=== PATIENT | male | born 1995 | race Caucasian/White ===

== ENCOUNTER 2023-11-06 00:16 | Emergency (ER) | payer BC ==
[~2023-11-06] VITALS: Ht 182.9 cm; Wt 81.6 kg
[2023-11-06] MEDS ORDERED: ACETAMINOPHEN 500 MG TABLET ONE (01:06)
[2023-11-06] MEDS ORDERED: DICLOXACILLIN SODIUM 250 MG CAPSULE ONE (01:07)
[2023-11-06] MEDS ORDERED: IBUPROFEN 600 MG TABLET ONE (01:07)
[2023-11-06] MEDS: ACETAMINOPHEN 500 MG TABLET PO ONE (01:10)
[2023-11-06] MEDS ORDERED: DICL500C PO (01:10)
[2023-11-06] MEDS: IBUPROFEN 600 MG TABLET PO ONE (01:10)
[2023-11-06] MEDS: DICLOXACILLIN SODIUM 250 MG CAPSULE PO ONE (01:10)
[2023-11-06] MEDS ORDERED: IBUP-1953 PO (01:10)
[2023-11-06 01:33] VITALS: BP 123/64; TEMP 98; O2SAT 99
== END 2023-11-06 01:34 | disposition home or self-care (01) ==
LOC: ER 00:28
DX: M70.22 Olecranon bursitis, left elbow (principal); Z79.1 Long term (current) use of non-steroidal anti-inflammatories (NSAID); Y93.89 Activity, other specified
CPT/HCPCS: A4606; A4663; A9150